=== PATIENT | male | born 1995 | race Caucasian/White ===

== ENCOUNTER 2018-01-01 14:11 | Emergency (ER) | payer MEDICAID, OTHER ==
--- NOTE | 2018-01-01 14:23 | EDPHY ---
H & P Stated Complaint: CP WITH COCAINE USE 1 WK AGO Time Seen by Provider: 01/01/18 14:35 HPI/ROS: CHIEF COMPLAINT: Chest pain HISTORY OF PRESENT ILLNESS: The patient is a 22 y/o male with a history of bipolar disorder and daily substance use arriving with his father complaining of waxing and waning chest pain for the last 24 hours. His pain is located across his entire anterior chest including "my lungs a little bit and into my shoulders." His pain is worse lying flat and with deep inspiration, though he denies shortness of breath. He has not taken anything for his pain. He notes he used cocaine 1.5 weeks ago, but denies any IV drug abuse. He did have "the stomach flu" with vomiting and diarrhea for about 12 hours 1 week ago. He denies cough, fever, leg swelling, recent long travel. No personal or family history of cardiac disease. REVIEW OF SYSTEMS: A ten point review of systems was performed and is negative with the exception of the items mentioned in the HPI. Past medical history: Bipolar disorder type 1, manic-psychotic (patient does not offer this information, obtained from old records); complicated appendicitis with secondary infection and abscess. Past surgical history: Appendectomy and abdominal abscess Family history: Alcoholism Social history: Father at bedside. Smokes 1 pack cigarettes/day. Couple beers daily. Employed in a [employer]. Prior medical records reviewed including admission 06/15/14 for untreated bipolar disorder, on short-term state certification at that time. General Appearance: Alert. Vital signs reviewed. Blood pressure 126/73. Eyes: Pupils equal and round, no conjunctival injection, no discharge. Anicteric. ENT, Mouth: Mucous membranes are moist, no oropharyngeal erythema or edema. Neck: No lymphadenopathy, supple. Respiratory: Lungs are clear to auscultation; no wheezes, rales, or rhonchi. Cardiovascular: Regular rate and rhythm; no murmur, rub, or gallop. Gastrointestinal: Abdomen is soft and nontender, no masses or organomegaly, bowel sounds normal. Skin: Warm and dry, no rashes on exposed skin, normal color. Back: Nontender to palpation over the thoracolumbar spine. No CVAT. Extremities: No lower extremity edema, no calf tenderness or swelling. Neurological: Alert and oriented. Moving all four extremities easily and equally. Psychiatric: Normal affect. - Personal History Current Tetanus Diphtheria and Acellular Pertussis (TDAP): Yes - Medical/Surgical History Hx Asthma: No Hx Chronic Respiratory Disease: No Hx Diabetes: No Hx Cardiac Disease: No Hx Renal Disease: No Hx Cirrhosis: No Hx Alcoholism: No Hx HIV/AIDS: No Hx Splenectomy or Spleen Trauma: No Other PMH: medical none. surgery appendectomy - Social History Smoking Status: Current every day smoker Constitutional: Initial Vital Signs Temperature (C) 36.8 C 01/01/18 14:18 Heart Rate 92 01/01/18 14:18 Respiratory Rate 16 01/01/18 14:18 Blood Pressure 126/73 H 01/01/18 14:18 O2 Sat (%) 98 01/01/18 14:18 O2 Delivery Mode Room Air Allergies/Adverse Reactions: dairy Allergy (Uncoded 01/01/18 14:18) Home Medications: Medication Instructions Recorded NK [No Known Home Meds] 01/01/18 Medical Decision Making - Diagnostics EKG Interpretation: 12 lead EKG is interpreted in Trace master View by emergency department physician. Diffuse ST elevation consistent with pericarditis. Imaging Results: Imaging Impressions Chest X-Ray 01/01/18 14:23 Impression: Possible airways disease. Otherwise negative. Imaging: I viewed and interpreted images myself ED Course/Re-evaluation: This is a 22 y/o male with a history of bipolar disorder who presents with a 24 -hour history of diffuse pleuritic chest pain extending to his back. Pain began 1.5 weeks after cocaine use and 1 week after a short-lived GI infection. Exam is unremarkable, no audible rub. Presentation is suggestive of pericarditis. Plan for IV, labs, EKG, chest x-ray. The 12 lead EKG was interpreted by myself. Sinus mechanism with diffuse ST elevation. See hard copy and/or "tracemaster" electronic copy for interpretation. Chest x-ray: airways disease, no infiltrate, no pneumothorax. Overall picture is consistent with a diagnosis of pericarditis. His pain is worse when supine. His EKG suggest pericarditis. He had a recent illness. I do not think that he has myocardial ischemia related to cocaine use 10 days ago. I do not suspect pulmonary embolus. He does not have a pneumothorax on chest x-ray. He does not have infiltrate/pneumonia on chest x-ray. 800mg PO ibuprofen ordered for pericarditis. Reassessed patient and discussed findings. Troponin is negative. WBC is elevated. Counselled smoking cessation. Recommended treatment with antiinflammatory for pericarditis and referral to cardiology and PCP for follow up. Return precautions discussed. He and his family are comfortable with this plan. Differential Diagnosis: Chest pain including but not limited to myocardial ischemia, pneumothorax, pericarditis, pulmonary embolus, chest wall pain, pleural inflammation and pulmonary infectious causes. - Data Points Laboratory Results: Laboratory Results 01/01/18 14:29 01/01/18 14:29 01/01/18 01/01/18 01/01/18 14:35 14:29 14:29 WBC 14.23 10^3/uL H 10^3/uL (3.80-9.50) RBC 5.55 10^6/uL 10^6/uL (4.40-6.38) Hgb 17.3 g/dL g/dL (13.7-17.5) Hct 49.5 % % (40.0-51.0) MCV 89.2 fL fL (81.5-99.8) MCH 31.2 pg pg (27.9-34.1) MCHC 34.9 g/dL g/dL (32.4-36.7) RDW 12.6 % % (11.5-15.2) Plt Count 336 10^3/uL 10^3/uL (150-400) MPV 8.5 fL L fL (8.7-11.7) Neut % (Auto) 72.5 % % (39.3-74.2) Lymph % (Auto) 16.2 % % (15.0-45.0) [place] % (Auto) 10.5 % % (4.5-13.0) Eos % (Auto) 0.2 % L % (0.6-7.6) Baso % (Auto) 0.2 % L % (0.3-1.7) Nucleat RBC Rel Count 0.0 % % (0.0-0.2) Absolute Neuts (auto) 10.31 10^3/uL H 10^3/uL (1.70-6.50) Absolute Lymphs (auto) 2.30 10^3/uL 10^3/uL (1.00-3.00) Absolute Monos (auto) 1.50 10^3/uL H 10^3/uL (0.30-0.80) Absolute Eos (auto) 0.03 10^3/uL 10^3/uL (0.03-0.40) Absolute Basos (auto) 0.03 10^3/uL 10^3/uL (0.02-0.10) Absolute Nucleated RBC 0.00 10^3/uL 10^3/uL (0-0.01) Immature Gran % 0.4 % % (0.0-1.1) Immature Gran # 0.06 10^3/uL 10^3/uL (0.00-0.10) Sodium 138 mEq/L mEq/L (135-145) Potassium 4.5 mEq/L mEq/L (3.3-5.0) Chloride 103 mEq/L mEq/L (97-110) Carbon Dioxide 27 mEq/l mEq/l (22-31) Anion Gap 8 mEq/L mEq/L (8-16) BUN 9 mg/dL mg/dL (7-23) Creatinine 0.8 mg/dL mg/dL (0.7-1.3) Estimated GFR > 60 Glucose 86 mg/dL mg/dL (70-100) Calcium 9.7 mg/dL mg/dL (8.5-10.4) POC Troponin I 0.00 ng/mL ng/mL (0.00-0.08) Medications Given: Discontinued Medications Ibuprofen (Motrin) 800 mg PO EDNOW ONE Stop: 01/01/18 16:09 Last Admin: 01/01/18 16:23 Dose: Not Given Ibuprofen (Motrin) 600 mg PO EDNOW ONE Stop: 01/01/18 16:23 Last Admin: 01/01/18 16:23 Dose: 600 mg Point of Care Test Results: Chemistry 01/01/18 14:35 POC Troponin I 0.00 ng/mL ng/mL (0.00-0.08) Departure - Departure Disposition: Home, Routine, Self-Care Clinical Impression: Pericarditis Qualifiers: Pericarditis type: unspecified type Chronicity: acute Qualified Code(s): I30.9 - Acute pericarditis, unspecified Condition: Good Instructions: How to Stop Smoking (ED), Acute Pericarditis (ED) Additional Instructions: 1. Take 800mg ibuprofen every 8 hours for the next few days while symptoms are present. I recommend taking this with food. 2. Follow up with regulatory manager in the next 2-3 days. I recommend calling today to schedule this appointment. 3. Follow up with a primary care provider in the next week to establish care locally. 4. Return to the ED for severe pain, difficulty breathing, fainting, or any other worsening of condition. I recommend avoiding illicit drugs and to quit smoking. There are signs of airways disease on your chest x-ray today. Referrals: Tee Lutz MD [Medical Doctor] - As per Instructions [facility],. [Clinic] - As per Instructions Stand Alone Forms: Work Excuse Report Scribed for: Dahlia Vasquez Report Scribed by: Negra Medina Date of Report: 01/01/18 Time of Report: 14:25 Physician Review and Approval Statement: 01/01/18 14:22 Portions of this note were transcribed by the medical insurance claims specialist. I, Dr. Dahlia Vasquez, personally performed the history, physical exam, and medical decision- making; and confirmed the accuracy of the information in the transcribed note.
--- NOTE | 2018-01-01 14:26 | CPEKG ---
Heart Rate: 89 RR Interval: 674 P-R Interval: 144 QRSD Interval: 86 QT Interval: 316 QTC Interval: 385 P [place]: 73 QRS [place]: 63 T Wave [place]: 35 EKG Severity - ABNORMAL ECG - EKG Impression: SINUS RHYTHM EKG Impression: ST ELEVATION SUGGESTS PERICARDITIS Electronically Signed By: Fartun Aguillon 02-Jan-2018 20:48:05
[2018-01-01 14:36] LABS: PLATELET COUNT 336 10^3/uL (150-400)
[2018-01-01] MEDS ORDERED: IBUPROFEN 600 MG TAB PO ONE ×2 (16:08→16:22)
[2018-01-01 16:29] VITALS: BP 126/71
== END 2018-01-01 16:28 | disposition home or self-care (01) ==
DX: I30.9 Acute pericarditis, unspecified (principal); F17.210 Nicotine dependence, cigarettes, uncomplicated
CPT/HCPCS: 84484-PO